=== PATIENT | female | born 1970 | race Caucasian/White ===

== ENCOUNTER 2017-10-23 00:01 | Emergency (ER) | payer BC, OTHER ==
[~2017-10-23] VITALS: Ht 160 cm; Wt 72.9 kg
[2017-10-23 00:10] VITALS: BP 130/70
[2017-10-23] MEDS ORDERED: AMOX500C2 PO (00:42)
[2017-10-24 06:09] LABS: RPR Non Reactive (Non Reactive)
== END 2017-10-23 01:02 | disposition home or self-care (01) ==
LOC: ER 00:02
DX: J02.9 Acute pharyngitis, unspecified (principal); A64 Unspecified sexually transmitted disease; Z88.6 Allergy status to analgesic agent
CPT/HCPCS: 36415; 86592; 99283

== ENCOUNTER 2020-07-02 09:41 | Emergency (ER) | payer BC ==
[~2020-07-02] VITALS: Ht 160 cm; Wt 87.3 kg
[2020-07-02 09:44] VITALS: BP 122/82
[2020-07-02] MEDS ORDERED: ONDA4TAB6 PO (10:04)
[2020-07-02] MEDS ORDERED: ondansetron 4mg rapidly disintigrating tab PO ONE (10:05)
== END 2020-07-02 10:23 | disposition home or self-care (01) ==
LOC: ER 09:42
DX: G43.909 Migraine, unspecified, not intractable, without status migrainosus (principal); R06.02 Shortness of breath; R42 Dizziness and giddiness; R11.0 Nausea; Z88.8 Allergy status to other drugs, medicaments and biological substances; Z79.899 Other long term (current) drug therapy
CPT/HCPCS: 99283

== ENCOUNTER 2021-10-12 16:16 | Emergency (ER) | payer BC, OTHER ==
[~2021-10-12] VITALS: Ht 160 cm; Wt 84.1 kg
[~2021-10-12 16:16] MED LIST: ONDA4TAB6 PO
[2021-10-12 16:22] VITALS: BP 154/97
== END 2021-10-12 17:08 | disposition home or self-care (01) ==
LOC: ER 16:17
DX: M25.511 Pain in right shoulder (principal); G89.29 Other chronic pain; G43.909 Migraine, unspecified, not intractable, without status migrainosus; Z88.8 Allergy status to other drugs, medicaments and biological substances; Z79.899 Other long term (current) drug therapy
CPT/HCPCS: 99281

== ENCOUNTER 2025-01-31 10:04 | Emergency (ER) | payer BC, OTHER ==
[~2025-01-31] VITALS: Ht 160 cm; Wt 85.2 kg
[2025-01-31 10:09] VITALS: BP 145/88; PULSE 90; RESP 16; TEMP 98.5; O2SAT 97
--- NOTE | 2025-01-31 10:21 | Physician Documentation ---
History of Present Illness ~ Stated Complaint: POSS SNAKE BITE Time Seen by MD: 10:21 Primary Medical Doctor: brianna [facility] 64-year-old female who [place] and felt something sharp catch her left leg in the backside says he thinks it might have in his neck but she did not see a snake nor adeola she see any other animals. no Neurological complaints no swelling at the site of the alleged bite posterior aspect of her left knee Tetanus witin 5 years: No Medication Reconciliation Allergies: Coded Allergies: hydrocodone bit (Verified Adverse Reaction, Mild, gi, 01/31/25) Scheduled Ondansetron Hcl (Zofran), 1 TAB PO Q6H Past Medical History Past Medical History: Migraine Past Surgical History: noncontributory Alcohol Use: None Drug Use: none Lives In: Home Review of Systems All Other Systems at this time: Reviewed and Negative ROS As stated above in the HPI, otherwise all systems are reviewed and negative. Physical Exam Physical Exam General: Alert, no apparent distress. HEENT: PERRL, EOMI, no injection, moist mucous membranes. Neck: Full range of motion. Respiratory: Lungs clear, no respiratory distress. Chest: No accessory muscle use. Cardiovascular: Regular rate and rhythm, no murmurs. Gastrointestinal: Soft, nontender, nondistended. Bowels sounds present. Extremities: Puncture in the posterior aspect of the left. Erythema no swelling no ecchymosis Neurologic: Oriented x4. Psychiatric: Normal mood and affect. Skin: Normal color, warm and dry. No edema, no ecchymosis. Progress Results/Orders Results/Orders Vital Signs 01/31/25 10:09 Temp 98.5 Pulse 90 Resp 16 B/P (MAP) 145/88 Pulse Ox 97 O2 Flow Rate 0 Medical Decision Making Additional information obtaine: old records Findings Not suspect this any bite as there are no signs of localized swelling erythema drainage or any focal neurological concerns. Patient's discharge. General Diff Dx:Considerations: Include: Abrasion, Contusion, Fracture, Hematoma, Laceration, Malunion, Neurovascular injury, Open fracture, Sprain, Ulcer, Other Knee Diff Dx:Considerations: Unlikely: Abrasion, Arthritis, Contusion, DJD, Fracture-femur, Fracture-fibula, Fracture-patella, Fracture-tibia, Gout, Hematoma, Laceration, Meniscus injury, Neurovascular injury, Open fracture, Rheumatoid arthritis, Septic, Sprain, Sprain-MCL, Sprain-LCL, Sprain-ACL, Sprain-PCL, Other Ankle Diff Dx:Considerations: Unlikely: Abrasion, Arthritis, Contusion, DJD, Fracture-metatarsal, Fracture-fibula, Fracture-tarsal, Fracture-tibia, Gout, Hematoma, Laceration, Malunion, Neurovascular injury, Nonunion, Open fracture, Osteomyelitis, Rheumatoid arthritis, Sprain, Septic, Ulcer, Other Foot Diff Dx:Considerations: Unlikely: Abrasion, Arthritis, Cellulitis, Contusion, Dislocation, DJD, Fracture-metatarsal, Fracture-phalynx, Fracture- tarsal, Gout, Hematoma, Ingrown toenail, Laceration, Malunion, Neurovascular injury, Open fracture, Paronychia, Puncture, Rheumatoid, Sprain, Septic, Subungual hematoma, Ulcer, Other Toe Diff Dx:Considerations: Unlikely: Abrasion, Cellulitis, Contusion, Dislocation, Felon, Fracture, Hematoma, Laceration, Neurovascular injury, Open fracture, Paronychia, Subungual hematoma, Other Departure Disposition: 01 HOME / SELF CARE / HOMELESS Impression: Primary Impression: Leg pain Condition: Improved Discharge Instructions: Abrasion, [id number] Referrals: NO PRIMARY CARE PROVIDER (PCP) Signature Scribe Signature: y Attestation: Scribed for Phoebe Casiano Embroiderer Hand by Phoebe Casiano - DESTIN . 01/31/25 15:39 PHOEBE CASIANO NP Jan 31, 2025 10:21
== END 2025-01-31 10:30 | disposition home or self-care (01) ==
LOC: ER 10:04
DX: S81.832A Puncture wound without foreign body, left lower leg, initial encounter (principal); G43.909 Migraine, unspecified, not intractable, without status migrainosus; Z88.8 Allergy status to other drugs, medicaments and biological substances; Z79.899 Other long term (current) drug therapy; X58.XXXA Exposure to other specified factors, initial encounter; Y93.01 Activity, walking, marching and hiking; Y92.89 Other specified places as the place of occurrence of the external cause; Y99.8 Other external cause status
CPT/HCPCS: 99282